=== PATIENT | female | born 1955 | race Caucasian/White ===

== ENCOUNTER → 2016-12-31 | Day surgery (SDC) | payer OTHER ==
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
[~2016-12-31] MED LIST: BUPIVACAINE HCL PF 0.5% 10 ML VIAL ONE; CLIN150 PO; CLINDAMYCIN PHOS 900 MG/6 ML VIAL ONE; ISOSULFAN BLUE 50 MG/5 ML VIAL SQ ONE; KETOROLAC TROMETHAMINE 30 MG/ML (IVP) VIAL IV PUSH ONE; LACTATED RINGER'S 1000 ML INJ 1,000 ML ONE; MIDAZOLAM HCL 2 MG/2 ML VIAL ONE; NS 100 ML (PAB BAG) 100 ML IV ONE; ONDANSETRON HCL 4 MG/2 ML VIAL IV PUSH ONE; PROPOFOL 200 MG/20 ML AMP IV ONE; SODIUM CHLORIDE 0.9% INJ 10 ML ONE; TRAM50 PO; Z.0.NO CURRENT MEDS
--- NOTE | 2016-12-31 13:06 | TN ---
cc: KRISTINE BASURTO DATE OF SURGERY: 12/31/2016 PREOPERATIVE DIAGNOSIS Right breast cancer. POSTOPERATIVE DIAGNOSIS Right breast cancer. PROCEDURE PERFORMED 1. Right breast lumpectomy. 2. Right axillary sentinel lymph node biopsy. SURGEON Kristine Lockwood. ANESTHESIA General via LMA device. INDICATION The patient is a 61-year-old female with a newly diagnosed invasive ductal carcinoma who has opted for breast conservation. She now presents for definitive surgical therapy. FINDINGS At the time of surgery 4 sentinel lymph nodes were removed. #1 was 3660 and was 1+ blue, #2 was 1736 and was 2+ blue, #3 was 37 and was not blue, and #4 was 22 and was 2+ blue. The lesion was palpable and did not require intraoperative imaging. PROCEDURE After informed consent was obtained and site verification was performed, the patient was brought to the radiology suite where she underwent peritumoral radionuclide injection. She was then brought to the major operating room where she underwent general anesthesia via an LMA device. She was given a single dose of IV clindamycin due to penicillin allergy and sequential compression hose were placed. 3 cc of half-strength Lymphazurin were injected in the subareolar right breast and a five-minute massage was performed. The right breast and arm were then prepped and draped in sterile fashion. An incision was anesthetized at the inferior aspect of the right axillary hairline and both sharp and electrocautery dissection were performed until the clavipectoral fascia was divided and the level I axilla was entered. There were two sentinel lymph nodes located in mid level I near the chest wall and each of these was circumferentially dissected free from surrounding structures with the counts as noted. There were blue lymphatics in the axillary tail of the breast and two additional lymph nodes were identified and circumferentially dissected free from surrounding structures with the counts as noted. Each of these were sent for permanent pathologic evaluation and touch prep was not performed. Good hemostasis was noted and the wound was closed using interrupted 3-0 Vicryl subcutaneous sutures and a 4-0 Monocryl subcuticular suture. Attention was then turned to the right breast where a palpable mass was identified at 9 o'clock, 5 cm from the nipple. A radial incision was created over the palpable mass after anesthetizing with 0.5% Marcaine plain. Sharp and electrocautery dissection were then performed circumferentially around the mass and the specimen was oriented with two sutures anteriorly, one short suture superiorly, and one long suture laterally. Inspection of the specimen did demonstrate that the medial and posterior margins appeared close and each of these was sharply re-excised with a stitch on the new margin. Good hemostasis was noted and the two additional margins were sent separate and permanent for pathologic evaluation. The incision was then closed using interrupted 3-0 Vicryl subcutaneous sutures and a 4-0 Monocryl subcuticular suture. Steri-Strips and a sterile dressing were applied. The patient tolerated the procedure well with an estimated blood loss of 100 cc. She was extubated in the operating room and brought to the recovery room in good condition. All sponge and needle counts were correct at the conclusion of the case. MD ERIKA Lockhart/EDDY /12:25 PM /12:43 PM
== END | disposition home or self-care (01) ==
LOC: ESDC 06:15
PROVIDERS: ATTEND Surgery
DX: C50.411 Malignant neoplasm of upper-outer quadrant of right female breast (principal)
CPT/HCPCS: 00400; 01610; 19301; 38525; 38792; 88307; J1885; J2250; J2405; J3010; J7120; Q9968; 88305

== ENCOUNTER → 2017-01-19 | Day surgery (SDC) | payer OTHER ==
[~2017-01-19] MED LIST changes: -BUPIVACAINE HCL PF 0.5% 10 ML VIAL ONE; +BUPIVACAINE/EPINEPHRINE 0.5% PF 10 ML VIAL ONE; +HEPARIN SODIUM - IV 10,000 UNITS/10 ML VIAL ONE; -ISOSULFAN BLUE 50 MG/5 ML VIAL SQ ONE; -KETOROLAC TROMETHAMINE 30 MG/ML (IVP) VIAL IV PUSH ONE; +KETOROLAC TROMETHAMINE 30 MG/ML (IVP) VIAL ONE; -NS 100 ML (PAB BAG) 100 ML IV ONE; -ONDANSETRON HCL 4 MG/2 ML VIAL IV PUSH ONE; -PROPOFOL 200 MG/20 ML AMP IV ONE; +PROPOFOL 500 MG/50 ML BTL IV ONE; +SODIUM CHLORIDE 0.9% 20 ML VIAL ONE; +SODIUM CHLORIDE 0.9% INJ 0 ML ONE; -SODIUM CHLORIDE 0.9% INJ 10 ML ONE; +SODIUM CHLORIDE 0.9% INJ 100 ML IV ONE
--- NOTE | 2017-01-19 15:10 | TN ---
cc: KRISTINE CORTEZ DATE OF SURGERY: 01/19/2017 PREOPERATIVE DIAGNOSIS Right breast cancer. POSTOPERATIVE DIAGNOSIS Right breast cancer. PROCEDURE PERFORMED Left subclavian [id number] placement. SURGEON Kristine Cortez. ANESTHESIA TIVA. INDICATION The patient is a 61-year-old female with newly diagnosed clinical stage II right breast cancer. Pathologically she is also stage II and the recommendation has been made for adjuvant chemotherapy. She now presents for port placement to facilitate adjuvant therapy. FINDINGS At the time of surgery normal left subclavian anatomy was identified. PROCEDURE After informed consent was obtained and site verification was performed, the patient was brought to the major operating room where she underwent general IV sedation. The left chest was prepped and draped in sterile fashion to include the neck and right chest. The infraclavicular area was anesthetized with 0.5% Marcaine plain and a Peeky needle was then advanced beneath the clavicle until the left subclavian vein was identified by percutaneous cannulation. A J-wire advanced easily through the needle via the Seldinger technique and the needle was removed. Further local analgesia was then applied around the wire and both sharp and electrocautery dissection were performed to create a subcutaneous pocket around the wire down to the level of the muscle for the reservoir. The catheter was measured at 25 cm then cut off and flushed with heparinized saline. The peel-away sheath and introducer were then advanced over the wire without difficulty and the wire and introducer were removed. The catheter advanced easily through the peel-away sheath which was then removed. Fluoroscopy demonstrated good position of the catheter tip at 19 cm and it was cut off at this point and secured to the reservoir which was noted to flush and aspirate easily. The reservoir was secured to the chest wall with two interrupted 2-0 Prolene sutures. Good hemostasis was noted and the wound was closed using interrupted 3-0 Vicryl subcutaneous sutures and a 4-0 Monocryl subcuticular suture. Steri-Strips and a sterile dressing were applied. The patient tolerated the procedure well with minimal blood loss. She was extubated in the operating room and brought to the recovery room in good condition. All sponge and needle counts were correct at the conclusion of the case. MD ERIKA Lockhart/EDDY /2:35 PM /3:02 PM
== END | disposition home or self-care (01) ==
LOC: ESDC 12:07
PROVIDERS: ATTEND Surgery
DX: Z45.2 Encounter for adjustment and management of vascular access device (principal); C50.911 Malignant neoplasm of unspecified site of right female breast
CPT/HCPCS: 00532; 36561; 77001; C1788; J1644; J1885; J2250; J3010; J7120